=== PATIENT | female | born 1965 | race Caucasian/White ===

== ENCOUNTER 2018-02-20 05:24 | Inpatient (IN) | payer OTHER ==
[2018-02-20] MEDS: GABAPENTIN 300 MG CAP PO ×2 (06:04→20:31)
[2018-02-20] MEDS: DEXAMETHASONE 1 MG TAB PO (06:04)
[2018-02-20] MEDS: traMADol 50 MG TAB PO (06:05)
[2018-02-20] MEDS: CEFAZOLIN 2 GM/50 ML (PMX) 50 ML IVPB (06:30)
[2018-02-20] MEDS ORDERED: DEXAMETHASONE 4 MG/ML 1 ML INJ (06:59)
[2018-02-20] MEDS ORDERED: FENTAnyl 50 MCG/ML VIAL (06:59)
[2018-02-20] MEDS ORDERED: PROPOFOL 20 ML (06:59)
[2018-02-20] MEDS ORDERED: MIDAZOLAM 1 MG/ML 2 ML INJ (06:59)
[2018-02-20] MEDS ORDERED: ROCURONIUM 50 MG INJ (06:59)
[2018-02-20] MEDS ORDERED: GLYCOPYRROLATE 0.4 MG INJ (06:59)
[2018-02-20] MEDS ORDERED: CEFAZOLIN 1 GM INJ (06:59)
[2018-02-20] MEDS ORDERED: ONDANSETRON 4 MG INJ (06:59)
[2018-02-20] MEDS ORDERED: NEOSTIGMINE 3 MG/3 ML SYRINGE (06:59)
[2018-02-20] MEDS ORDERED: BUPIVACAINE 0.75%/DEXT (SPINAL) 2 ML INJ (07:00)
[2018-02-20] MEDS ORDERED: morphine SULFATE/PF (10 MG/10 ML) INJ (07:00)
[2018-02-20] MEDS: TRANEXAMIC ACID 1,000 MG in DEXTROSE 5% 100 ML IVPB (07:02)
[2018-02-20] MEDS: POLYMYXIN/BACITRACIN 1L IRRIG (07:59)
[2018-02-20] MEDS: BUPIVACAINE 0.5% (SDV) 30 ML, morphine SULFATE (PF) 8 MG, EPINEPHrine 0.3 MG, KETOROLAC... IRR (07:59)
[2018-02-20] MEDS ORDERED: HYDROmorphONE (0.2 MG/ML) 10ML SYG IV ×3 (08:00)
[2018-02-20] MEDS ORDERED: hydrALAzine 20 MG INJ IV (08:00)
[2018-02-20] MEDS ORDERED: LABETALOL HCL 20MG INJ IV (08:00)
[2018-02-20] MEDS ORDERED: ALBUTEROL 0.083% (NEB) 2.5 MG/3 ML AMP HHN (08:00)
[2018-02-20] MEDS ORDERED: MIDAZOLAM 1 MG/ML 2 ML INJ IV (08:00)
[2018-02-20] MEDS ORDERED: NALOXONE (0.4 MG/ML) INJ IV (08:00)
[2018-02-20] MEDS ORDERED: MEPERIDINE 25 MG INJ IV (08:00)
[2018-02-20] MEDS ORDERED: TRIMETHOBENZAMIDE 100 MG/ML VIAL IM (08:00)
[2018-02-20] MEDS ORDERED: DIPHENHYDRAMINE 50 MG INJ IV ×2 (08:00→09:00)
[2018-02-20] MEDS ORDERED: FENTAnyl 50 MCG/ML VIAL IV ×3 (08:00)
[2018-02-20] MEDS ORDERED: OXYCODONE/ACETAMINOPHEN (5/325) TAB PO ×3 (08:00→09:00)
[2018-02-20] MEDS ORDERED: IPRATROPIUM (NEB) 0.5 MG/2.5 ML AMP HHN (08:00)
[2018-02-20] MEDS ORDERED: EPHEDrine SULFATE 50 MG/5 ML SYG IV (08:00)
[2018-02-20] MEDS: SOD CHLORIDE 0.9% 100 ML, TRANEXAMIC ACID 3,000 MG IRR (08:01)
[2018-02-20] MEDS: THROMBIN 5000 UNIT VIAL (08:05)
[2018-02-20] MEDS: CA CHLORIDE 10% 10 ML SYRINGE (08:05)
[2018-02-20] MEDS ORDERED: SUGAMMADEX SODIUM 200 MG/2 ML VIAL IV (08:52)
[2018-02-20] MEDS: CYCLOBENZAPRINE 10 MG TAB PO ×3 (09:00→20:32)
[2018-02-20] MEDS ORDERED: KETOROLAC 15 MG INJ IV (09:00)
[2018-02-20] MEDS ORDERED: morphine 2 MG INJ IV (09:00)
[2018-02-20] MEDS ORDERED: ACETAMINOPHEN 500 MG TAB PO (09:00)
[2018-02-20] MEDS: SENNA/DOCUSATE NA (8.6MG/50MG) TAB PO ×2 (09:00→20:30)
[2018-02-20] MEDS ORDERED: MAGNESIUM HYDROXIDE 30ML CUP PO (09:00)
[2018-02-20] MEDS: ONDANSETRON 4 MG INJ IV (09:28)
[2018-02-20] MEDS: TRANEXAMIC ACID 1,000 MG in DEXTROSE 5% 100 ML IV (09:39)
[2018-02-20] MEDS: CEFAZOLIN 1 GM/50 ML (PMX) 50 ML IVPB ×2 (09:49→17:33)
[2018-02-20] MEDS: LACTATED RINGER'S 1,000 ML IV ×2 (09:50→17:34)
[2018-02-20 12:19] LABS: ADD MAN DIFF? NO
[2018-02-20] MEDS: TOPIRAMATE SPRINKLE 25 MG CAP PO (12:20)
[2018-02-20] MEDS: DEXAMETHASONE 2 MG TAB PO ×2 (12:20→17:34)
[2018-02-20 12:21] LABS: BASOPHILS % 0.2 % (0.0-2.0); EOSINOPHILS % 0.1 % (0.0-7.0); HEMATOCRIT 34.5 % (37.0-47.0); HEMOGLOBIN 11.4 g/dl (12.0-16.0); LYMPHOCYTES # 0.7 10^3/ul (0.8-2.9); LYMPHOCYTES % 5.4 % (15.0-51.0); MEAN CORPUSCULAR HEMOGLOBIN 31.1 pg (29.0-33.0); MEAN CORPUSCULAR VOLUME 94.3 fl (82.0-101.0); MONOCYTE # 0.4 10^3/ul (0.3-0.9); MONOCYTES % 2.8 % (0.0-11.0); NEUTROPHIL # 11.1 10^3/ul (1.6-7.5); NEUTROPHILS % 89.9 % (39.0-77.0); PLATELET COUNT 194 10^3/UL (140-415); RED BLOOD COUNT 3.66 10^6/ul (4.20-5.40); RED CELL DISTRIBUTION WIDTH 12.6 % (11.5-14.5)
[2018-02-20 12:21] LABS: WHITE BLOOD COUNT 12.3 10^3/ul (4.8-10.8)
[2018-02-20] MEDS: ZOLPIDEM 5 MG TAB PO (22:09)
[2018-02-21] MEDS: DEXAMETHASONE 2 MG TAB PO ×2 (00:14→06:34)
[2018-02-21] MEDS: CEFAZOLIN 1 GM/50 ML (PMX) 50 ML IVPB (02:17)
[2018-02-21] MEDS: LACTATED RINGER'S 1,000 ML IV ×2 (02:20→13:41)
[2018-02-21 05:23] LABS: ADD MAN DIFF? NO
[2018-02-21 05:28] LABS: WHITE BLOOD COUNT 16.5 10^3/ul (4.8-10.8)
[2018-02-21 05:28] LABS: BASOPHILS % 0.1 % (0.0-2.0); HEMATOCRIT 35.5 % (37.0-47.0); HEMOGLOBIN 11.5 g/dl (12.0-16.0); LYMPHOCYTES # 1.1 10^3/ul (0.8-2.9); LYMPHOCYTES % 6.7 % (15.0-51.0); MEAN CORPUSCULAR HEMOGLOBIN 30.3 pg (29.0-33.0); MEAN CORPUSCULAR HGB CONC 32.4 g/dl (32.0-37.0); MEAN CORPUSCULAR VOLUME 93.7 fl (82.0-101.0); MEAN PLATELET VOLUME 9.1 fl (7.4-10.4); MONOCYTE # 1.2 10^3/ul (0.3-0.9); MONOCYTES % 7.4 % (0.0-11.0); PLATELET COUNT 229 10^3/UL (140-415); RED BLOOD COUNT 3.79 10^6/ul (4.20-5.40); RED CELL DISTRIBUTION WIDTH 12.8 % (11.5-14.5)
[2018-02-21] MEDS: morphine 2 MG INJ IV (06:53)
[2018-02-21] MEDS: CYCLOBENZAPRINE 10 MG TAB PO ×2 (08:42→12:32)
[2018-02-21] MEDS: SENNA/DOCUSATE NA (8.6MG/50MG) TAB PO (08:42)
[2018-02-21] MEDS: TOPIRAMATE SPRINKLE 25 MG CAP PO (08:42)
[2018-02-21] MEDS: ASPIRIN 81 MG TAB PO (08:42)
[2018-02-21] MEDS: OXYCODONE/ACETAMINOPHEN (5/325) TAB PO ×2 (08:43→12:30)
[2018-02-21] MEDS: ONDANSETRON 4 MG INJ IV (11:35)
[2018-02-21] MEDS ORDERED: morphine LIQ (20 MG/ML PO SYG) PO (14:00)
[2018-02-21] MEDS ORDERED: morphine LIQ (10 MG/5 ML) CUP PO (14:00)
== END 2018-02-21 15:05 | disposition home or self-care (01) | DRG 470 ==
LOC: REC 05:24 → MS1 10:33
PROVIDERS: Orthopaedic Surgery
PROC: 0SR904A Replacement of Right Hip Joint with Ceramic on Polyethylene Synthetic Substitute, Uncemented, Open Approach (ICD-10-PCS; principal; 2018-02-20 07:00)
DX: M16.51 Unilateral post-traumatic osteoarthritis, right hip (principal); I10 Essential (primary) hypertension
CPT/HCPCS: 72170; 73500; 73530; 85025; 86999; 87086; 97110; 97116; 97162; 97530